=== PATIENT | female | born 1930 | race Caucasian/White ===

== ENCOUNTER 2017-01-10 10:08 | Observation (INO) ==
[2017-01-10 11:04] LABS: Basophils % 0.2 % (0.0-0.8); Eosinophils # 0.1 10*3/uL (0.0-0.87); Eosinophils % 1.1 % (0.00-10.9); Hematocrit 36.6 VOL% (35.7-47.0); Hemoglobin 12.6 GM/DL (12.0-16.0); Immature Granulocytes % 0.5 %; Immature Granulocytes Absolute 0.04 #; Lymphocytes # 1.7 10*3/uL (1.4-4.0); Lymphocytes % 21.5 % (21.3-54.2); Mean Corpuscular HGB Conc 34.4 GM/DL (32-36); Mean Corpuscular Hemoglobin 31 PG (27-34); Mean Corpuscular Volume 90.6 FL (87-102); Mean Platelet Volume 11.1 FL (9.6-12.0); Monocytes # 0.5 10*3/uL (0.11-0.8); Monocytes % 5.6 % (1.7-12.7); Neutrophils # 5.7 10*3/uL (1.4-7.4); Neutrophils % 71.1 % (38.7-73.9); Platelet Count 189 T/CUMM (130-400); Red Blood Count 4.04 MC/CUMM (3.8-5.5); Red Cell Distribution Width 13.3 % (9.3-17.3)
[2017-01-10] MEDS ORDERED: MAGNESIUM SULF RIDER 2 GM in PREMIX 1 EACH IV PRN (11:16)
[2017-01-10] MEDS ORDERED: MAGNESIUM SULF RIDER 4 GM in PREMIX 1 EACH IV PRN (11:16)
[2017-01-10] MEDS ORDERED: ONDANSETRON 4 MG/2 ML VIAL IV PRN (11:16)
[2017-01-10] MEDS ORDERED: DOCUSATE SODIUM 100 MG CAPSULE PO PRN (11:16)
[2017-01-10] MEDS ORDERED: ACETAMINOPHEN 325 MG TABLET PO PRN (11:16)
[2017-01-10 11:48] LABS: Alanine Aminotransferase 19 U/L (13-56); Albumin 3.6 G/DL (3.4-5.0); Alkaline Phosphatase 70 U/L (45-117); Aspartate Amino Transferase 17 U/L (0-37); Blood Urea Nitrogen 18 MG/DL (7-18); Calcium 9.1 MG/DL (8.5-10.1); Glucose 88 MG/DL (74-106); Osmolality,Calculated 279.4 MOS/KG (273-304); Potassium 3.7 MMOL/L (3.5-5.1); Sodium 140 MMOL/L (136-145); Total Protein 6.6 G/DL (6.4-8.3); Troponin I Only < 0.015 NG/ML (0.00-0.045)
[2017-01-10] MEDS: ASPIRIN EC 81 MG TABLET PO SCH (14:33)
[2017-01-10] MEDS: METOPROLOL TARTRATE 50 MG TABLET PO SCH ×2 (14:33→21:09)
[2017-01-10] MEDS ORDERED: hydrALAZINE 20 MG/1 ML VIAL IV PRN (16:37)
[2017-01-10] MEDS: ROSUVASTATIN 10 MG TABLET PO SCH (21:09)
[2017-01-10] MEDS: ZALEPLON 5 MG CAPSULE PO PRN (21:14)
[2017-01-11 05:52] LABS: Basophils % 0.2 % (0.0-0.8); Eosinophils # 0.2 10*3/uL (0.0-0.87); Eosinophils % 3.5 % (0.00-10.9); Hematocrit 36.5 VOL% (35.7-47.0); Hemoglobin 12.6 GM/DL (12.0-16.0); Immature Granulocytes % 0.6 %; Immature Granulocytes Absolute 0.03 #; Lymphocytes # 2.3 10*3/uL (1.4-4.0); Lymphocytes % 42.1 % (21.3-54.2); Mean Corpuscular HGB Conc 34.5 GM/DL (32-36); Mean Corpuscular Hemoglobin 31 PG (27-34); Mean Corpuscular Volume 90.3 FL (87-102); Mean Platelet Volume 11.2 FL (9.6-12.0); Monocytes # 0.5 10*3/uL (0.11-0.8); Monocytes % 8.7 % (1.7-12.7); Neutrophils # 2.4 10*3/uL (1.4-7.4); Neutrophils % 44.9 % (38.7-73.9); Platelet Count 173 T/CUMM (130-400); Red Blood Count 4.04 MC/CUMM (3.8-5.5); Red Cell Distribution Width 13.2 % (9.3-17.3); White Blood Count 5.4 T/CUMM (4-12)
[2017-01-11] MEDS: LEVOTHYROXINE 100 MCG TABLET PO SCH (06:11)
[2017-01-11 06:24] LABS: Calcium 8.9 MG/DL (8.5-10.1); Osmolality,Calculated 281.3 MOS/KG (273-304); Potassium 3.5 MMOL/L (3.5-5.1); Risk Ratio 2.11; Thyroid Stimulating Hormone 0.315 uIU/ml (0.358-3.74); VLDL CHOLESTEROL 11.2 MG/DL
[2017-01-11] MEDS: FLUoxetine 10 MG CAPSULE PO SCH (09:31)
[2017-01-11] MEDS: TRIAMTERENE/HCTZ 37.5-25 MG TABLET PO SCH (09:31)
[2017-01-11] MEDS: ASPIRIN EC 81 MG TABLET PO SCH (09:31)
[2017-01-11] MEDS: METOPROLOL TARTRATE 50 MG TABLET PO SCH ×2 (09:31→22:09)
[2017-01-11] MEDS ORDERED: MAGNESIUM SULF RIDER 2 GM in PREMIX 1 EACH IV PRN (16:03)
[2017-01-11] MEDS ORDERED: POTASSIUM CHLORIDE RIDER 10 MEQ in PREMIX 1 EACH IV PRN (16:03)
[2017-01-11] MEDS: SODIUM CHLORIDE 0.45% 1,000 ML IV SCH (17:54)
[2017-01-11] MEDS: ROSUVASTATIN 10 MG TABLET PO SCH (22:11)
[2017-01-12] MEDS: SODIUM CHLORIDE 0.45% 1,000 ML IV SCH (04:12)
[2017-01-12 05:08] LABS: Basophils % 0.3 % (0.0-0.8); Eosinophils # 0.2 10*3/uL (0.0-0.87); Eosinophils % 3.2 % (0.00-10.9); Hematocrit 36.2 VOL% (35.7-47.0); Hemoglobin 12.5 GM/DL (12.0-16.0); Immature Granulocytes % 0.5 %; Immature Granulocytes Absolute 0.03 #; Lymphocytes # 2.8 10*3/uL (1.4-4.0); Lymphocytes % 44.8 % (21.3-54.2); Mean Corpuscular HGB Conc 34.5 GM/DL (32-36); Mean Corpuscular Hemoglobin 31 PG (27-34); Mean Platelet Volume 11.4 FL (9.6-12.0); Monocytes # 0.6 10*3/uL (0.11-0.8); Monocytes % 9.9 % (1.7-12.7); Neutrophils # 2.6 10*3/uL (1.4-7.4); Neutrophils % 41.3 % (38.7-73.9); Platelet Count 176 T/CUMM (130-400); Red Blood Count 3.98 MC/CUMM (3.8-5.5); Red Cell Distribution Width 13.2 % (9.3-17.3); White Blood Count 6.3 T/CUMM (4-12)
[2017-01-12 05:39] LABS: Calcium 9.2 MG/DL (8.5-10.1); Magnesium 2.1 MG/DL (1.8-2.4); Osmolality,Calculated 288.8 MOS/KG (273-304); Potassium 3.5 MMOL/L (3.5-5.1)
[2017-01-12] MEDS ORDERED: DIAZEPAM 5 MG TABLET PO ONE (06:00)
[2017-01-12] MEDS ORDERED: diphenhydrAMINE CAP 25 MG CAPSULE PO ONE (06:00)
[2017-01-12] MEDS: LEVOTHYROXINE 100 MCG TABLET PO SCH (06:45)
[2017-01-12] MEDS: FLUoxetine 10 MG CAPSULE PO SCH (08:01)
[2017-01-12] MEDS: TRIAMTERENE/HCTZ 37.5-25 MG TABLET PO SCH (08:01)
[2017-01-12] MEDS: ASPIRIN EC 81 MG TABLET PO SCH (08:01)
[2017-01-12] MEDS: METOPROLOL TARTRATE 50 MG TABLET PO SCH ×2 (08:01→20:24)
[2017-01-12] MEDS ORDERED: MIDAZOLAM 2 MG/2 ML VIAL ONE (08:33)
[2017-01-12] MEDS ORDERED: LIDOCAINE 1% 20 ML VIAL ONE (08:33)
[2017-01-12] MEDS ORDERED: MEPERIDINE 25 MG/1 ML VIAL ONE (08:33)
[2017-01-12] MEDS ORDERED: HEPARIN 5,000 UNIT/1 ML VIAL ONE (08:53)
[2017-01-12] MEDS ORDERED: NIFEdipine 10 MG CAPSULE ONE (09:19)
[2017-01-12] MEDS ORDERED: hydrALAZINE 20 MG/1 ML VIAL ONE (09:31)
[2017-01-12] MEDS: ROSUVASTATIN 10 MG TABLET PO SCH (20:24)
[2017-01-12] MEDS: ZALEPLON 5 MG CAPSULE PO PRN (20:24)
[2017-01-13 06:01] LABS: Basophils % 0.3 % (0.0-0.8); Eosinophils # 0.1 10*3/uL (0.0-0.87); Eosinophils % 1.4 % (0.00-10.9); Hematocrit 36.3 VOL% (35.7-47.0); Hemoglobin 12.6 GM/DL (12.0-16.0); Immature Granulocytes % 0.5 %; Immature Granulocytes Absolute 0.04 #; Lymphocytes # 2.7 10*3/uL (1.4-4.0); Lymphocytes % 33.9 % (21.3-54.2); Mean Corpuscular HGB Conc 34.7 GM/DL (32-36); Mean Corpuscular Hemoglobin 31 PG (27-34); Mean Corpuscular Volume 89.9 FL (87-102); Mean Platelet Volume 11.5 FL (9.6-12.0); Monocytes # 0.6 10*3/uL (0.11-0.8); Monocytes % 7.8 % (1.7-12.7); Neutrophils # 4.4 10*3/uL (1.4-7.4); Neutrophils % 56.1 % (38.7-73.9); Platelet Count 196 T/CUMM (130-400); Red Blood Count 4.04 MC/CUMM (3.8-5.5); Red Cell Distribution Width 13.2 % (9.3-17.3); White Blood Count 7.8 T/CUMM (4-12)
[2017-01-13 06:38] LABS: Calcium 9.5 MG/DL (8.5-10.1); Osmolality,Calculated 284.3 MOS/KG (273-304); Potassium 3.4 MMOL/L (3.5-5.1)
[2017-01-13] MEDS: LEVOTHYROXINE 100 MCG TABLET PO SCH (07:11)
[2017-01-13 08:16] VITALS: BP 145/66
[2017-01-13] MEDS: FLUoxetine 10 MG CAPSULE PO SCH (08:45)
[2017-01-13] MEDS: TRIAMTERENE/HCTZ 37.5-25 MG TABLET PO SCH (08:45)
[2017-01-13] MEDS: ASPIRIN EC 81 MG TABLET PO SCH (08:45)
[2017-01-13] MEDS: METOPROLOL TARTRATE 50 MG TABLET PO SCH (08:45)
[2017-01-13] MEDS ORDERED: POTASSIUM CHLORIDE 20 MEQ TABLET PO ONE (10:29)
== END 2017-01-13 12:36 | disposition home or self-care (01) ==
LOC: N.EDINP 10:08 → N.ED 10:08 → N.TELEN 13:25
PROVIDERS: ADMIT Internal Medicine Clinical Cardiac Electrophysiology; ATTEND Internal Medicine Clinical Cardiac Electrophysiology
PROC: CLCCHCL (ICD-10-PCS; 2017-01-12 09:15)

== ENCOUNTER 2017-04-04 12:13 | Inpatient (IN) ==
[2017-04-04] MEDS ORDERED: SODIUM CHLORIDE 0.9% 1,000 ML IV STA (12:18)
[2017-04-04] MEDS ORDERED: PROPOFOL 200 MG/20 ML VIAL IV ONE (12:30)
[2017-04-04] MEDS ORDERED: ROCURONIUM 100 MG/10 ML VIAL IV ONE (12:30)
[2017-04-04] MEDS ORDERED: PROPOFOL 1,000 MG/100 ML BOTTLE IV ONE (12:34)
[2017-04-04] MEDS ORDERED: PROPOFOL 200 MG/20 ML VIAL IV STA (12:40)
[2017-04-04] MEDS ORDERED: ROCURONIUM 100 MG/10 ML VIAL IV STA (12:40)
[2017-04-04] MEDS: PROPOFOL 1,000 MG/100 ML BOTTLE IV SCH ×2 (13:00→21:38)
[2017-04-04 13:19] LABS: Basophils % 0.1 % (0.0-0.8); Hematocrit 36.5 VOL% (35.7-47.0); Hemoglobin 12.4 GM/DL (12.0-16.0); Immature Granulocytes % 0.6 %; Immature Granulocytes Absolute 0.08 #; Lymphocytes # 0.8 10*3/uL (1.4-4.0); Lymphocytes % 6.2 % (21.3-54.2); Mean Corpuscular Hemoglobin 31 PG (27-34); Mean Corpuscular Volume 91.3 FL (87-102); Mean Platelet Volume 11.6 FL (9.6-12.0); Monocytes % 7.6 % (1.7-12.7); Neutrophils # 11.5 10*3/uL (1.4-7.4); Neutrophils % 85.5 % (38.7-73.9); Platelet Count 173 T/CUMM (130-400); Red Cell Distribution Width 13.2 % (9.3-17.3); White Blood Count 13.5 T/CUMM (4-12)
[2017-04-04 13:32] LABS: Barbiturates Screen,Urine Negative (Negative); Benzodiazepines Screen,Urine Negative (Negative); Cannabinoid Screen,Urine Negative (Negative); Opiate Screen,Urine Negative (Negative); Phencyclidine Screen,Urine Negative (Negative)
[2017-04-04 13:37] LABS: Apearance,Urine Slightly Hazy (Clear); Bilirubin,Urine Negative (Negative); Blood, Urine Large mg/dL (Negative); Glucose,Urine (UA) Negative (Negative); Ketones,Urine Negative (Negative); Nitrite,Urine Negative (Negative); Protein,Urine 100 MG/DL; RBC,Urine 3 /HPF (0-4); Squamous Epithelial Cell,Urine Occasional /HPF (0-10); Urine Color Yellow (Yellow); Urine Specific Gravity 1.023 (1.001-1.035); Urine Urobilinogen < 2.0 EU/DL (0.2-1.0); WBC,Urine 1 /HPF (0-6)
[2017-04-04 13:44] LABS: INR 1.2; PT Patient Result 12.1 SECS; Partial Thromboplastin Time 21.2 SECS (0-40)
[2017-04-04 13:46] LABS: Alanine Aminotransferase 28 U/L (13-56); Albumin 3.6 G/DL (3.4-5.0); Alkaline Phosphatase 61 U/L (45-117); Aspartate Amino Transferase 62 U/L (0-37); Blood Urea Nitrogen 25 MG/DL (7-18); Glucose 130 MG/DL (74-106); Osmolality,Calculated 288.1 MOS/KG (273-304); Potassium 2.9 MMOL/L (3.5-5.1); Sodium 142 MMOL/L (136-145); Total Protein 6.9 G/DL (6.4-8.3)
[2017-04-04 13:59] LABS: ABG HCO3 24.5 MMOL/L (20-26); ABG PCO2 35.1 MM HG (35-48); ABG PH 7.437 (7.35-7.45); ABG TCO2 20.9 MMOL/L (23-27)
[2017-04-04] MEDS ORDERED: POTASSIUM CHLORIDE 20 MEQ TABLET PO ONE (14:25)
[2017-04-04] MEDS: POTASSIUM CHLORIDE 20 MEQ TABLET PO STA ×2 (14:36→14:54)
[2017-04-04] MEDS ORDERED: POTASSIUM CHLORIDE 20 MEQ PACK ONE (14:47)
[2017-04-04] MEDS ORDERED: POTASSIUM CHLORIDE 20 MEQ PACK PO STA (14:54)
[2017-04-04] MEDS ORDERED: ONDANSETRON 4 MG/2 ML VIAL IV PRN (15:08)
[2017-04-04] MEDS ORDERED: SODIUM CHLORIDE 0.9% 1,000 ML IV SCH (15:30)
[2017-04-04] MEDS ORDERED: SODIUM CHLOR 0.9% KCL 40 MEQ 40 MEQ/1,000 ML BAG IV ONE (16:05)
[2017-04-04] MEDS ORDERED: ENOXAPARIN 40 MG/0.4 ML SYRINGE ONE (16:05)
[2017-04-04] MEDS ORDERED: PANTOPRAZOLE 40 MG VIAL IV ONE (16:05)
[2017-04-04] MEDS: PANTOPRAZOLE 40 MG VIAL IV SCH (16:11)
[2017-04-04] MEDS: SODIUM CHLOR 0.9% KCL 40 MEQ 40 MEQ/1,000 ML BAG IV SCH (16:14)
[2017-04-04 17:42] LABS: ABG Base Excess -1.4 MMOL/L (-2.5-2.5); ABG HCO3 23.2 MMOL/L (20-26); ABG PCO2 34.5 MM HG (35-48); ABG PH 7.421 (7.35-7.45); ABG TCO2 19.8 MMOL/L (23-27)
[2017-04-04] MEDS: ENOXAPARIN 40 MG/0.4 ML SYRINGE SUBCUT SCH (21:57)
[2017-04-05] MEDS: SODIUM CHLOR 0.9% KCL 40 MEQ 40 MEQ/1,000 ML BAG IV SCH ×4 (00:54→19:46)
[2017-04-05] MEDS: PROPOFOL 1,000 MG/100 ML BOTTLE IV SCH ×2 (02:45→14:16)
[2017-04-05 04:43] LABS: Basophils % 0.1 % (0.0-0.8); Hematocrit 36.4 VOL% (35.7-47.0); Immature Granulocytes % 0.5 %; Immature Granulocytes Absolute 0.08 #; Lymphocytes # 1.6 10*3/uL (1.4-4.0); Lymphocytes % 10.5 % (21.3-54.2); Mean Corpuscular Hemoglobin 31 PG (27-34); Mean Corpuscular Volume 93.1 FL (87-102); Mean Platelet Volume 12.1 FL (9.6-12.0); Monocytes # 1.4 10*3/uL (0.11-0.8); Monocytes % 9.6 % (1.7-12.7); Neutrophils # 11.9 10*3/uL (1.4-7.4); Neutrophils % 79.3 % (38.7-73.9); Platelet Count 150 T/CUMM (130-400); Red Blood Count 3.91 MC/CUMM (3.8-5.5); Red Cell Distribution Width 13.9 % (9.3-17.3)
[2017-04-05 05:01] LABS: ABG Base Excess -1.9 MMOL/L (-2.5-2.5); ABG HCO3 21.8 MMOL/L (20-26); ABG Oxygen Saturation 98.9 % (95-100); ABG PCO2 33.5 MM HG (35-48); ABG PH 7.431 (7.35-7.45); ABG PO2 176.5 MM HG (80-95); ABG TCO2 22.8 MMOL/L (23-27); Allen Test Positive; Pt O2 Delivery Device Ventilator
[2017-04-05 05:10] LABS: Calcium 8.1 MG/DL (8.5-10.1); Osmolality,Calculated 292.6 MOS/KG (273-304); Potassium 4.2 MMOL/L (3.5-5.1)
[2017-04-05] MEDS: PANTOPRAZOLE 40 MG VIAL IV SCH (09:16)
[2017-04-05] MEDS ORDERED: GLUCAGON 1 MG VIAL IM PRN (10:52)
[2017-04-05] MEDS ORDERED: DEXTROSE 50% 25 GM/50 ML VIAL IV PRN (10:52)
[2017-04-05] MEDS: INSULIN REGULAR 100 UNIT/ML SUBCUT SCH ×2 (12:17→17:37)
[2017-04-05] MEDS: ENOXAPARIN 40 MG/0.4 ML SYRINGE SUBCUT SCH (20:27)
[2017-04-06] MEDS: SODIUM CHLOR 0.9% KCL 40 MEQ 40 MEQ/1,000 ML BAG IV SCH ×4 (01:45→17:30)
[2017-04-06] MEDS: INSULIN REGULAR 100 UNIT/ML SUBCUT SCH ×4 (01:45→18:06)
[2017-04-06 04:08] LABS: ABG Base Excess -1.1 MMOL/L (-2.5-2.5); ABG HCO3 22.1 MMOL/L (20-26); ABG Oxygen Saturation 98.5 % (95-100); ABG PCO2 32.1 MM HG (35-48); ABG PH 7.456 (7.35-7.45); ABG PO2 134.2 MM HG (80-95); ABG TCO2 23.1 MMOL/L (23-27); Allen Test Positive; Pt O2 Delivery Device Ventilator
[2017-04-06 05:08] LABS: Basophils % 0.2 % (0.0-0.8); Hematocrit 33.5 VOL% (35.7-47.0); Immature Granulocytes % 0.8 %; Immature Granulocytes Absolute 0.09 #; Lymphocytes # 1.3 10*3/uL (1.4-4.0); Lymphocytes % 11.5 % (21.3-54.2); Mean Corpuscular HGB Conc 32.8 GM/DL (32-36); Mean Corpuscular Hemoglobin 31 PG (27-34); Mean Corpuscular Volume 93.6 FL (87-102); Mean Platelet Volume 12.1 FL (9.6-12.0); Monocytes # 1.1 10*3/uL (0.11-0.8); Monocytes % 9.9 % (1.7-12.7); Neutrophils # 8.9 10*3/uL (1.4-7.4); Neutrophils % 77.6 % (38.7-73.9); Platelet Count 146 T/CUMM (130-400); Red Blood Count 3.58 MC/CUMM (3.8-5.5); Red Cell Distribution Width 13.9 % (9.3-17.3); White Blood Count 11.5 T/CUMM (4-12)
[2017-04-06 05:40] LABS: Calcium 8.4 MG/DL (8.5-10.1); Osmolality,Calculated 294.6 MOS/KG (273-304); Potassium 4.2 MMOL/L (3.5-5.1)
[2017-04-06 05:54] LABS: Prealbumin 14.4 MG/DL (20-40)
[2017-04-06] MEDS: hydrALAZINE 20 MG/1 ML VIAL IV PRN ×2 (06:25→14:54)
[2017-04-06] MEDS: PANTOPRAZOLE 40 MG VIAL IV SCH (08:54)
[2017-04-06] MEDS: PROPOFOL 1,000 MG/100 ML BOTTLE IV SCH (13:05)
[2017-04-06] MEDS ORDERED: FUROSEMIDE 40 MG/4 ML VIAL IV ONE (13:51)
[2017-04-06] MEDS: cefTRIAXone 1,000 MG in SYRINGE 1 EACH IV SCH (15:00)
[2017-04-06] MEDS: MORPHINE 2 MG/1 ML SYRINGE IV PRN (15:08)
[2017-04-06 15:37] LABS: Apearance,Urine CLEAR (Clear); Bilirubin,Urine Negative (Negative); Blood, Urine Small mg/dL (Negative); Glucose,Urine (UA) Negative (Negative); Ketones,Urine Negative (Negative); Mucus,Urine Occasional /LPF (Occasional); Nitrite,Urine Negative (Negative); Protein,Urine Negative; RBC,Urine 20 /HPF (0-4); Urine Color Colorless (Yellow); Urine Specific Gravity 1.004 (1.001-1.035); Urine Urobilinogen < 2.0 EU/DL (0.2-1.0); WBC,Urine 1 /HPF (0-6)
[2017-04-06] MEDS: ENOXAPARIN 40 MG/0.4 ML SYRINGE SUBCUT SCH (20:58)
[2017-04-07] MEDS: INSULIN REGULAR 100 UNIT/ML SUBCUT SCH ×4 (01:01→17:35)
[2017-04-07 04:12] LABS: ABG Base Excess 2.8 MMOL/L (-2.5-2.5); ABG HCO3 26.9 MMOL/L (20-26); ABG Oxygen Saturation 99.5 % (95-100); ABG PCO2 35.9 MM HG (35-48); ABG PH 7.472 (7.35-7.45); ABG TCO2 23.6 MMOL/L (23-27); Allen Test Positive; Pt O2 Delivery Device Ventilator
[2017-04-07 05:11] LABS: Basophils % 0.2 % (0.0-0.8); Eosinophils % 0.2 % (0.00-10.9); Hematocrit 31.5 VOL% (35.7-47.0); Hemoglobin 10.6 GM/DL (12.0-16.0); Immature Granulocytes % 0.9 %; Immature Granulocytes Absolute 0.09 #; Lymphocytes # 1.1 10*3/uL (1.4-4.0); Mean Corpuscular HGB Conc 33.7 GM/DL (32-36); Mean Corpuscular Hemoglobin 32 PG (27-34); Mean Corpuscular Volume 93.5 FL (87-102); Mean Platelet Volume 11.8 FL (9.6-12.0); Monocytes # 0.9 10*3/uL (0.11-0.8); Monocytes % 9.8 % (1.7-12.7); Neutrophils # 7.5 10*3/uL (1.4-7.4); Neutrophils % 77.9 % (38.7-73.9); Platelet Count 153 T/CUMM (130-400); Red Blood Count 3.37 MC/CUMM (3.8-5.5); Red Cell Distribution Width 14.1 % (9.3-17.3); White Blood Count 9.6 T/CUMM (4-12)
[2017-04-07 05:39] LABS: Calcium 8.3 MG/DL (8.5-10.1); Osmolality,Calculated 297.4 MOS/KG (273-304); Potassium 3.8 MMOL/L (3.5-5.1)
[2017-04-07] MEDS: SODIUM CHLOR 0.9% KCL 40 MEQ 40 MEQ/1,000 ML BAG IV SCH ×2 (06:10→15:35)
[2017-04-07 06:31] LABS: Band Neutrophils 1 % (0-10); Lymphocytes 10 % (20-55); Segmented Neutrophils 82 % (50-85); Total Cells Counted 100
[2017-04-07 06:32] LABS: Hypochromasia Slight; Ovalocytes 1+; Platelet Estimate Normal
[2017-04-07] MEDS: METOPROLOL TARTRATE 50 MG TABLET PER TUBE SCH ×2 (08:16→20:57)
[2017-04-07] MEDS: ASPIRIN CHEW 81 MG TABLET PO SCH (08:16)
[2017-04-07] MEDS: PANTOPRAZOLE 40 MG VIAL IV SCH (08:16)
[2017-04-07] MEDS: FLUoxetine 20 MG CAPSULE PER TUBE SCH (08:16)
[2017-04-07] MEDS ORDERED: FLUoxetine 20 MG CAPSULE PO SCH (09:00)
[2017-04-07] MEDS ORDERED: METOPROLOL TARTRATE 50 MG TABLET PO SCH (09:00)
[2017-04-07] MEDS: MORPHINE 2 MG/1 ML SYRINGE IV PRN (10:34)
[2017-04-07] MEDS: FUROSEMIDE 40 MG/5 ML UDCUP PO SCH (11:17)
[2017-04-07] MEDS: PROPOFOL 1,000 MG/100 ML BOTTLE IV SCH (15:34)
[2017-04-07] MEDS: cefTRIAXone 1,000 MG in SYRINGE 1 EACH IV SCH (15:45)
[2017-04-07] MEDS: POTASSIUM CHLORIDE INJ 10 MEQ in SODIUM CHLORIDE 0.45% 1,000 ML IV SCH (17:35)
[2017-04-07] MEDS: ENOXAPARIN 40 MG/0.4 ML SYRINGE SUBCUT SCH (20:57)
[2017-04-08] MEDS: INSULIN REGULAR 100 UNIT/ML SUBCUT SCH ×4 (01:18→18:18)
[2017-04-08] MEDS: hydrALAZINE 20 MG/1 ML VIAL IV PRN (04:38)
[2017-04-08 05:40] LABS: Basophils % 0.2 % (0.0-0.8); Eosinophils % 0.2 % (0.00-10.9); Hematocrit 33.3 VOL% (35.7-47.0); Hemoglobin 11.2 GM/DL (12.0-16.0); Immature Granulocytes % 0.9 %; Immature Granulocytes Absolute 0.11 #; Lymphocytes # 1.6 10*3/uL (1.4-4.0); Lymphocytes % 12.6 % (21.3-54.2); Mean Corpuscular HGB Conc 33.6 GM/DL (32-36); Mean Corpuscular Hemoglobin 31 PG (27-34); Mean Corpuscular Volume 92.2 FL (87-102); Mean Platelet Volume 11.8 FL (9.6-12.0); Monocytes # 1.1 10*3/uL (0.11-0.8); Monocytes % 8.4 % (1.7-12.7); Neutrophils # 10.1 10*3/uL (1.4-7.4); Neutrophils % 77.7 % (38.7-73.9); Platelet Count 181 T/CUMM (130-400); Red Blood Count 3.61 MC/CUMM (3.8-5.5); Red Cell Distribution Width 13.8 % (9.3-17.3); White Blood Count 12.9 T/CUMM (4-12)
[2017-04-08] MEDS: POTASSIUM CHLORIDE INJ 10 MEQ in SODIUM CHLORIDE 0.45% 1,000 ML IV SCH ×2 (06:20→21:26)
[2017-04-08 06:34] LABS: Calcium 8.5 MG/DL (8.5-10.1); Potassium 3.6 MMOL/L (3.5-5.1)
[2017-04-08 06:36] LABS: Band Neutrophils 2 % (0-10); Hypochromasia 1+; Lymphocytes 14 % (20-55); Microcytosis 1+; Ovalocytes Few; Platelet Estimate Adequate; Segmented Neutrophils 78 % (50-85); Total Cells Counted 100
[2017-04-08] MEDS ORDERED: LEVOTHYROXINE 100 MCG TABLET PO SCH (07:00)
[2017-04-08] MEDS: PROPOFOL 1,000 MG/100 ML BOTTLE IV SCH ×2 (07:44→13:06)
[2017-04-08] MEDS ORDERED: FUROSEMIDE 40 MG/4 ML VIAL IV ONE (07:46)
[2017-04-08] MEDS: METOPROLOL TARTRATE 50 MG TABLET PER TUBE SCH ×2 (08:02→21:26)
[2017-04-08] MEDS: ASPIRIN CHEW 81 MG TABLET PO SCH (08:03)
[2017-04-08] MEDS: PANTOPRAZOLE 40 MG VIAL IV SCH (08:03)
[2017-04-08] MEDS: LEVOTHYROXINE 100 MCG TABLET PER TUBE SCH (08:03)
[2017-04-08] MEDS: FLUoxetine 20 MG CAPSULE PER TUBE SCH (08:03)
[2017-04-08] MEDS: FUROSEMIDE 40 MG/5 ML UDCUP PO SCH (13:05)
[2017-04-08] MEDS: cefTRIAXone 1,000 MG in SYRINGE 1 EACH IV SCH (17:05)
[2017-04-08] MEDS: MANNITOL IV SCH (18:19)
[2017-04-08] MEDS: ENOXAPARIN 40 MG/0.4 ML SYRINGE SUBCUT SCH (21:25)
[2017-04-09] MEDS: INSULIN REGULAR 100 UNIT/ML SUBCUT SCH ×5 (00:06→23:24)
[2017-04-09] MEDS: MANNITOL IV SCH ×3 (02:43→18:02)
[2017-04-09] MEDS: PROPOFOL 1,000 MG/100 ML BOTTLE IV SCH ×2 (02:56→14:02)
[2017-04-09 03:50] LABS: ABG Base Excess 6.7 MMOL/L (-2.5-2.5); ABG HCO3 29.1 MMOL/L (20-26); ABG Oxygen Saturation 98.6 % (95-100); ABG PCO2 33.7 MM HG (35-48); ABG PH 7.554 (7.35-7.45); ABG PO2 161.9 MM HG (80-95); ABG TCO2 30.1 MMOL/L (23-27); Allen Test Positive; Pt O2 Delivery Device Ventilator
[2017-04-09 05:00] LABS: Basophils % 0.2 % (0.0-0.8); Eosinophils # 0.1 10*3/uL (0.0-0.87); Eosinophils % 0.8 % (0.00-10.9); Hemoglobin 9.9 GM/DL (12.0-16.0); Immature Granulocytes % 0.7 %; Immature Granulocytes Absolute 0.08 #; Lymphocytes # 1.6 10*3/uL (1.4-4.0); Lymphocytes % 14.6 % (21.3-54.2); Mean Corpuscular Hemoglobin 31 PG (27-34); Mean Platelet Volume 12.1 FL (9.6-12.0); Monocytes % 8.8 % (1.7-12.7); Neutrophils # 8.2 10*3/uL (1.4-7.4); Neutrophils % 74.9 % (38.7-73.9); Platelet Count 148 T/CUMM (130-400); Red Blood Count 3.19 MC/CUMM (3.8-5.5); Red Cell Distribution Width 13.4 % (9.3-17.3)
[2017-04-09 05:24] LABS: Calcium 8.2 MG/DL (8.5-10.1); Osmolality,Calculated 283.5 MOS/KG (273-304); Potassium 3.3 MMOL/L (3.5-5.1)
[2017-04-09 05:30] LABS: Band Neutrophils 2 % (0-10); Eosinophils 1 % (0-10); Lymphocytes 16 % (20-55); Segmented Neutrophils 72 % (50-85); Total Cells Counted 100
[2017-04-09 05:31] LABS: Prealbumin 8.4 MG/DL (20-40)
[2017-04-09 05:32] LABS: Hypochromasia 1+; Microcytosis 1+; Ovalocytes 1+; Platelet Estimate Normal
[2017-04-09] MEDS: LEVOTHYROXINE 100 MCG TABLET PER TUBE SCH (06:36)
[2017-04-09] MEDS: FLUoxetine 20 MG CAPSULE PER TUBE SCH (09:12)
[2017-04-09] MEDS: ASPIRIN CHEW 81 MG TABLET PO SCH (09:12)
[2017-04-09] MEDS: METOPROLOL TARTRATE 50 MG TABLET PER TUBE SCH ×2 (09:12→20:51)
[2017-04-09] MEDS: FUROSEMIDE 40 MG/5 ML UDCUP PO SCH (09:13)
[2017-04-09] MEDS: PANTOPRAZOLE 40 MG VIAL IV SCH (09:13)
[2017-04-09] MEDS: hydrALAZINE 20 MG/1 ML VIAL IV PRN ×2 (09:37→17:10)
[2017-04-09] MEDS ORDERED: POTASSIUM CHLORIDE RIDER 10 MEQ in PREMIX 1 EACH IV PRN (12:23)
[2017-04-09] MEDS: POTASSIUM CHLORIDE 20 MEQ/15 ML UDCUP PER TUBE PRN ×3 (14:00→18:03)
[2017-04-09] MEDS: cefTRIAXone 1,000 MG in SYRINGE 1 EACH IV SCH (14:03)
[2017-04-09] MEDS: POTASSIUM CHLORIDE INJ 10 MEQ in SODIUM CHLORIDE 0.45% 1,000 ML IV SCH (17:22)
[2017-04-09] MEDS: ENOXAPARIN 40 MG/0.4 ML SYRINGE SUBCUT SCH (20:51)
[2017-04-10] MEDS: MANNITOL IV SCH ×3 (01:32→18:20)
[2017-04-10] MEDS: PROPOFOL 1,000 MG/100 ML BOTTLE IV SCH ×3 (01:33→13:00)
[2017-04-10 04:12] LABS: Allen Test Positive; Pt O2 Delivery Device Ventilator
[2017-04-10 04:14] LABS: ABG Base Excess 4.5 MMOL/L (-2.5-2.5); ABG HCO3 28.5 MMOL/L (20-26); ABG Oxygen Saturation 99.7 % (95-100); ABG PCO2 34.1 MM HG (35-48); ABG PH 7.513 (7.35-7.45); ABG TCO2 24.6 MMOL/L (23-27)
[2017-04-10 05:08] LABS: Basophils % 0.2 % (0.0-0.8); Eosinophils # 0.1 10*3/uL (0.0-0.87); Eosinophils % 0.6 % (0.00-10.9); Hematocrit 31.5 VOL% (35.7-47.0); Hemoglobin 10.3 GM/DL (12.0-16.0); Immature Granulocytes % 1.6 %; Lymphocytes % 8.2 % (21.3-54.2); Mean Corpuscular HGB Conc 32.7 GM/DL (32-36); Mean Corpuscular Hemoglobin 31 PG (27-34); Mean Corpuscular Volume 94.3 FL (87-102); Mean Platelet Volume 12.3 FL (9.6-12.0); Monocytes % 7.6 % (1.7-12.7); Neutrophils # 10.2 10*3/uL (1.4-7.4); Neutrophils % 81.8 % (38.7-73.9); Platelet Count 199 T/CUMM (130-400); Red Blood Count 3.34 MC/CUMM (3.8-5.5); Red Cell Distribution Width 13.6 % (9.3-17.3); White Blood Count 12.5 T/CUMM (4-12)
[2017-04-10 05:32] LABS: Band Neutrophils 2 % (0-10); Hypochromasia 1+; Lymphocytes 4 % (20-55); Microcytosis 1+; Ovalocytes Few; Segmented Neutrophils 89 % (50-85); Total Cells Counted 100
[2017-04-10 05:33] LABS: Platelet Estimate Normal
[2017-04-10 05:44] LABS: Calcium 8.2 MG/DL (8.5-10.1); Osmolality,Calculated 278.8 MOS/KG (273-304)
[2017-04-10] MEDS: INSULIN REGULAR 100 UNIT/ML SUBCUT SCH ×4 (05:49→23:23)
[2017-04-10] MEDS: LEVOTHYROXINE 100 MCG TABLET PER TUBE SCH (06:06)
[2017-04-10] MEDS: METOPROLOL TARTRATE 50 MG TABLET PER TUBE SCH ×2 (08:42→20:50)
[2017-04-10] MEDS: PANTOPRAZOLE 40 MG VIAL IV SCH (08:42)
[2017-04-10] MEDS: ASPIRIN CHEW 81 MG TABLET PO SCH (08:42)
[2017-04-10] MEDS: FUROSEMIDE 40 MG/5 ML UDCUP PO SCH (08:42)
[2017-04-10] MEDS: FLUoxetine 20 MG CAPSULE PER TUBE SCH (08:46)
[2017-04-10] MEDS: POTASSIUM CHLORIDE INJ 10 MEQ in SODIUM CHLORIDE 0.45% 1,000 ML IV SCH ×2 (09:09→17:37)
[2017-04-10] MEDS ORDERED: ZINC OXIDE PASTE 113 GM TUBE TOP PRN (11:30)
[2017-04-10] MEDS: cefTRIAXone 1,000 MG in SYRINGE 1 EACH IV SCH (15:24)
[2017-04-10] MEDS: ENOXAPARIN 40 MG/0.4 ML SYRINGE SUBCUT SCH (21:30)
[2017-04-11 04:21] LABS: ABG Base Excess 4.8 MMOL/L (-2.5-2.5); ABG HCO3 26.3 MMOL/L (20-26); ABG Oxygen Saturation 98.8 % (95-100); ABG PCO2 28.5 MM HG (35-48); ABG PH 7.583 (7.35-7.45); ABG PO2 154.1 MM HG (80-95); ABG TCO2 27.2 MMOL/L (23-27)
[2017-04-11 04:58] LABS: Basophils % 0.4 % (0.0-0.8); Eosinophils # 0.2 10*3/uL (0.0-0.87); Eosinophils % 1.5 % (0.00-10.9); Hematocrit 28.6 VOL% (35.7-47.0); Hemoglobin 9.6 GM/DL (12.0-16.0); Immature Granulocytes % 3.7 %; Immature Granulocytes Absolute 0.37 #; Lymphocytes # 1.1 10*3/uL (1.4-4.0); Lymphocytes % 10.5 % (21.3-54.2); Mean Corpuscular HGB Conc 33.6 GM/DL (32-36); Mean Corpuscular Hemoglobin 30 PG (27-34); Mean Corpuscular Volume 90.5 FL (87-102); Mean Platelet Volume 11.4 FL (9.6-12.0); Monocytes % 10.3 % (1.7-12.7); Neutrophils # 7.4 10*3/uL (1.4-7.4); Neutrophils % 73.6 % (38.7-73.9); Platelet Count 219 T/CUMM (130-400); Red Blood Count 3.16 MC/CUMM (3.8-5.5); Red Cell Distribution Width 13.4 % (9.3-17.3)
[2017-04-11 05:25] LABS: Calcium 8.4 MG/DL (8.5-10.1); Osmolality,Calculated 280.5 MOS/KG (273-304); Potassium 3.8 MMOL/L (3.5-5.1)
[2017-04-11 05:26] LABS: Band Neutrophils 1 % (0-10); Eosinophils 1 % (0-10); Giant Platelets Few; Hypochromasia 1+; Lymphocytes 7 % (20-55); Ovalocytes Slight; Platelet Estimate Adequate; Segmented Neutrophils 82 % (50-85); Total Cells Counted 100
[2017-04-11 05:27] LABS: Microcytosis 1+
[2017-04-11] MEDS: LEVOTHYROXINE 100 MCG TABLET PER TUBE SCH (06:14)
[2017-04-11] MEDS: INSULIN REGULAR 100 UNIT/ML SUBCUT SCH ×3 (06:14→17:36)
[2017-04-11] MEDS ORDERED: LEVOTHYROXINE 100 MCG VIAL IV SCH (07:00)
[2017-04-11] MEDS: METOPROLOL TARTRATE 5 MG/5 ML VIAL IV SCH ×3 (08:24→22:25)
[2017-04-11] MEDS: ASPIRIN CHEW 81 MG TABLET PO SCH (08:32)
[2017-04-11] MEDS: FUROSEMIDE 40 MG/5 ML UDCUP PO SCH (08:32)
[2017-04-11] MEDS: METOPROLOL TARTRATE 50 MG TABLET PER TUBE SCH (08:33)
[2017-04-11] MEDS: FLUoxetine 20 MG CAPSULE PER TUBE SCH (08:33)
[2017-04-11 09:48] LABS: Pt O2 Delivery Device Ventilator
[2017-04-11 09:49] LABS: ABG Base Excess 4.2 MMOL/L (-2.5-2.5); ABG HCO3 28.2 MMOL/L (20-26); ABG Oxygen Saturation 99.6 % (95-100); ABG PCO2 31.2 MM HG (35-48); ABG PH 7.537 (7.35-7.45); ABG TCO2 24.1 MMOL/L (23-27)
[2017-04-11] MEDS ORDERED: DEXT 5% NACL 0.45% KCL 10 MEQ 10 MEQ/1,000 ML BAG IV SCH (10:00)
[2017-04-11] MEDS: PANTOPRAZOLE 40 MG VIAL IV SCH (11:00)
[2017-04-11] MEDS: MANNITOL IV SCH (11:08)
[2017-04-11] MEDS: cefTRIAXone 1,000 MG in SYRINGE 1 EACH IV SCH (14:27)
[2017-04-11] MEDS: MORPHINE 2 MG/1 ML SYRINGE IV PRN ×2 (15:33→17:56)
[2017-04-11 16:11] VITALS: BP 166/73
[2017-04-11] MEDS ORDERED: MORPHINE 2 MG/1 ML SYRINGE IV PRN (19:26)
[2017-04-11] MEDS: ENOXAPARIN 40 MG/0.4 ML SYRINGE SUBCUT SCH (22:25)
[2017-04-12] MEDS ORDERED: FUROSEMIDE 40 MG/4 ML VIAL IV SCH (09:00)
== END 2017-04-11 19:41 | disposition expired | DRG 64 ==
LOC: EDUNIT# → EDBD → N.ED 12:13 → SUATTDRO 13:18 → N.EDINP 13:18 → N.CC 18:57
PROVIDERS: ADMIT Internal Medicine; ATTEND Internal Medicine